=== PATIENT | male | born 1995 | race Caucasian/White ===

== ENCOUNTER 2024-05-01 21:24 | Emergency (ER) | payer BC, SELFPAY ==
[2024-05-01 21:25] VITALS: BP 121/92; PULSE 93; RESP 16; TEMP 35.5; O2SAT 95; BMI 26.6
--- NOTE | 2024-05-01 22:11 | EX.ED.DYSGE1 ---
HPI History of Present Illness Chief Complaint: Nausea/Vomiting Informant: patient and spouse/S.O. Narrative Narrative: 28-year-old male presenting to the emergency room with vomiting. Patient states for the past 3 days he has had vomiting. He notes no diarrhea. He notes sweats but no definitive fever. Decreased urination. States having a unable to tolerate anything p.o. He notes his abdomen and flanks feel achy but no significant pain. No recent travel or bad food exposure or bad water. No recent antibiotics. He states he is on Wegovy and thought initially could be from that but it has persisted. He also takes fluoxetine no change in the dosing. is feeling well. No rashes. [facility] Medical History Anxiety Kidney stone Home Medications ?Medication ?Instructions ?Recorded ?Last Taken ?Type promethazine 25 mg tablet 25 mg PO Q6H PRN PRN Nausea #10 05/02/24 Unknown Rx TABLETS Allergy/AdvReac Type Severity Reaction Status Date / Time No Known Allergies Allergy Verified 05/01/24 21:25 Social History Smoking Status: Never smoker ROS [facility] ED Constitutional Constitutional ED: Reports fever(s), subjective and sweats; Denies chills or weight loss Eyes Eyes: Denies change in vision or diplopia ENT ENT ED: Denies ear pain, rhinorrhea or sore throat Cardiovascular Cardiovascular: Denies chest pain, orthopnea, palpitations or racing heartbeat Respiratory/Chest Respiratory/Chest: Denies cough, dyspnea or orthopnea Gastrointestinal Gastrointestinal: Reports nausea, vomiting and other Details: Abdominal aching ; Denies abdominal pain or diarrhea Genitourinary Genitourinary ED: Denies dysuria, hematuria or urinary frequency Musculoskeletal Musculoskeletal: Reports back pain; Denies arthralgias or myalgias Integumentary Denies abscess or rash Neurologic Neurologic: Denies headache(s) or weakness Psychiatric Psychiatric: Denies anxiety, depression, suicidal ideation or suicidal thoughts Endocrine Endocrinology: Denies polydipsia, polyphagia or polyuria Allergic/Immunologic Allergic/Immunologic ED: Denies mouth swelling, tongue swelling or urticaria EXAM Physical Exam Const Vital Signs: 05/01/24 21:25 05/01/24 23:50 05/02/24 01:39 Temperature 96 F L 98.6 F Temperature Source Temporal Oral Pulse Rate 93 104 H 86 Respiratory Rate 16 16 17 Blood Pressure 121/92 H 130/85 H 108/86 H Blood Pressure Mean 101 100 93 Pulse Ox 95 99 96 Oxygen Delivery Method Room Air Room Air Room Air Positive well nourished and well developed General Appearance ED: well developed HEENT Reports normocephalic, head/scalp atraumatic and moist mucous membranes Eyes PERRL and EOMs intact bilaterally Neck no lymphadenopathy, supple and no JVD Resp normal respiratory effort and clear to auscultation bilaterally Cardio regular rate, regular rhythm and no murmurs GI normal to inspection, nondistended, normoactive bowel sounds and non-tender Palpation: soft Back/Spine no CVA tenderness and normal ROM Extremity normal to inspection General Extremety ED: Negative for edema General Extremity: Negative for edema Neuro oriented x3 and CN's II-XII intact bilaterally Sensorium / Orientation: alert Motor Exam: strength 5/5 throughout Psych mental status grossly normal Mood & Affect: Negative for depressed or tearful Skin no rashes or lesions noted and no wounds MDM MDM MDM Narrative Medical decision making narrative: Differential diagnosis includes but not limited to gastritis bowel obstruction volvulus pancreatitis biliary colic choledocholithiasis colitis dehydration electrolyte abnormalities medication reaction White count is normal at 8.0 hemoglobin 15.7 and platelet count of 265. 85.1 neutrophils 9.3 lymphocytes. BMP shows a potassium of 3.3 gap of 10 CO2 25 BUN of 12 creatinine 0.82. Patient has a total bilirubin of 1.6 with a direct bilirubin of 0.38. Otherwise LFTs are within normal limits. Lipase is normal at 39. Urine concentrated with [address] ketones[address] No obvious infection. CT abdomen pelvis demonstrated small renal calculi but otherwise no acute findings. Patient received IV fluids and Zofran. Patient required redosing with Zofran. He is able to tolerate some ice chips but still had nauseous received a dose of Phenergan. I believe the patient can be discharged home. I will write for nausea medication. I would suspect that his symptoms would subside in the next few days. I am not seeing any evidence of obstruction either of bowel or gastric. I will write for Phenergan. I would encourage him to advance diet as tolerated and orally hydrate in any way including popsicles or small frequent sips of water/electrolyte drink. History & Record Review Discussion w/independent historian: Patient and Significant other Lab Data Attestation: I reviewed the patient's lab results. Labs: Laboratory Results - last 24 hr 05/01/24 05/01/24 22:37 23:42 WBC 8.0 RBC 5.02 Hgb 15.7 Hct 43.9 MCV 87.5 MCH 31.3 MCHC 35.8 RDW Std Deviation 37.2 RDW Coeff of Keith 11.6 Plt Count 265 MPV 11.7 Immature Gran % (Auto) 0.300 Neut % (Auto) 85.1 H Lymph % (Auto) 9.3 L [place] % (Auto) 4.9 Eos % (Auto) 0.0 Baso % (Auto) 0.4 Absolute Neuts (auto) 6.8 Absolute Lymphs (auto) 0.74 L Nucleated RBC % 0 Sodium 142 Potassium 3.3 L Chloride 107 Carbon Dioxide 25.0 Anion Gap 10 BUN 12 Creatinine 0.82 Estim Creat Clear Calc 123.15 Est GFR (MDRD) Af Amer 141 Est GFR (MDRD) Non-Af 117 BUN/Creatinine Ratio 14.6 Glucose 114 H Calcium 9.4 Total Bilirubin 1.60 H Direct Bilirubin 0.38 H AST 19 ALT 50 Alkaline Phosphatase 64 Total Protein 8.2 Albumin 4.1 Globulin 4.1 Lipase 39 Urine Color Magda Urine Clarity Clear Urine pH 6.0 Ur Specific [place] 1.020 Urine Protein 30 H Urine Glucose (UA) Normal Urine Ketones 150 A* Urine Occult Blood Negative Urine Nitrite Negative Urine Bilirubin Negative Urine Urobilinogen 4 H Ur Leukocyte Esterase 25 H Urine RBC 0-5 SEEN Urine WBC 5-10 SEEN Ur Squamous Epith Cells 0-5 SEEN Calcium Oxalate Crystal 1+ Urine Bacteria 0 SEEN Urine Mucus RARE Radiography Diagnostic Testing: Clinical Impression(s) from Imaging Studies Abdomen/Pelvis CT 05/01/24 23:10 IMPRESSION: No acute findings. Bilateral nephrolithiasis without hydronephrosis. Electronically Signed: Cindy Tran MD at 0:10 EDT , Discharge Plan Triage Chief Complaint: Nausea/Vomiting ED Provider: Stevenson Espinal Dx/Rx/DC Orders Clinical Impression: Vomiting, Mild dehydration Instructions: ED Dehydration (Adult), ED Vomiting (Adult) Prescriptions: New promethazine 25 mg tablet 25 mg PO Q6H PRN PRN (Reason: Nausea) Qty: 10 0RF Primary Care Provider: Care Physician,No Primary Referrals: Care Physician,No Primary [Primary Care Provider] - Print Language: Micronesian Disposition Disposition: Home, Self Care
[2024-05-01] MEDS: 0.9% Normal Saline (1000mL) 1,000 ML 999 ML IV (22:39)
[2024-05-01] MEDS: Ondansetron 4 MG/2 ML Vial IV (22:39)
[2024-05-01 22:59] LABS: AST(SGOT) 19 U/L (15-37); Alanine Aminotransfer ALT/SGPT 50 U/L (16-61); Albumin, Serum 4.1 g/dL (3.2-5.0); Alkaline Phosphatase 64 U/L (45-117); Anion Gap 10 (5-15); BUN 12 mg/dL (7-18); BUN/Creat Ratio 14.6 RATIO (10-20); Bilirubin, Direct 0.38 mg/dL (0.00-0.30); Calcium,Total 9.4 mg/dL (8.5-10.1); Chloride 107 mmol/L (98-107); Creatinine, Serum 0.82 mg/dL (0.70-1.30); EST Glomerular Filtration Rate 117 mL/min (>60); Est Glom Filt Rate - Afr Amer 141 mL/min (>60); Estimated Creatinine Clearance 123.15 ml/min; Globulin 4.1 g/dL (2.2-4.2); Glucose 114 mg/dL (74-106); Lipase 39 U/L (13-75); Potassium 3.3 mmol/L (3.5-5.1); Protein, Total 8.2 g/dL (6.4-8.2); Sodium Level 142 mmol/L (136-145)
[2024-05-01 23:00] LABS: Absolute Lymphocyte Count 0.74 X10^3/uL (0.83-4.51); Absolute Neutrophil Count 6.8 X10^3/uL (2.0-7.7); Basophil# 0.03 X10^3/uL; Basophil% 0.4 % (0-1); Hematocrit 43.9 % (40-54); Hemoglobin 15.7 g/dL (13.0-16.5); Lymphocyte # 0.74 X10^3/ul (0.83-4.51); Lymphocyte % 9.3 % (19-41); Mean Corp Hgb Conc 35.8 g/dL (32-36); Mean Corpuscular Hgb 31.3 pg (27.0-32.0); Mean Corpuscular Volume 87.5 fL (80-94); Mean Platelet Vol. 11.7 fl (6.2-12.0); Monocyte# 0.39 X10^3/uL; Monocyte% 4.9 % (0-10); NRBC Flagged by Analyzer 0 % (0-5); Neutrophil # 6.77 X10^3/uL (2.7-7.7); Neutrophil % 85.1 % (47-70); Platelet Count 265 K/mm3 (150-450); RBC Distribution Width CV 11.6 % (11.6-14.6); RBC Distribution Width SD 37.2 fl (35.1-43.9); Red Blood Count 5.02 M/mm3 (4.6-6.2)
--- NOTE | 2024-05-01 23:10 | CT_ITS ---
EXAM: CT Abdomen And Pelvis W/ Contrast Injection HISTORY: abdominal pain and vomiting TECHNIQUE: Routine protocol CT abdomen pelvis. IV Contrast: IV 100mL [id number] . Oral Contrast: without. Sagittal and coronal images were reconstructed. RADIATION DOSAGE (If Supplied By Facility): CTDIvol = ( 9.45 ) mGy, DLP = ( 718.72 ) mGycm Individualized dose optimization techniques were used for this CT. COMPARISON: None. LIMITATIONS: None. FINDINGS: LOWER CHEST: Lung bases are clear. Tiny nodule right lower lobe likely postinflammatory. LIVER: Unremarkable. GALLBLADDER/BILE DUCTS: Unremarkable. PANCREAS: Unremarkable. SPLEEN: Unremarkable. ADRENAL GLANDS: Unremarkable. KIDNEYS / URETERS: A few small calculi in both kidneys. No hydronephrosis. BOWEL / MESENTERY: Unremarkable. No bowel obstruction. APPENDIX: Identified and normal. No evidence of acute appendicitis. PERITONEUM: No free air. No free fluid. VESSELS: Abdominal aorta is normal caliber. RETROPERITONEUM: Unremarkable. REPRODUCTIVE ORGANS: Unremarkable. BLADDER: Unremarkable. ABDOMINAL WALL: Unremarkable. BONES: No acute abnormality. 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 OTHER: None. CT/Abdomen/Pelvis W IV Cont ONLY IMPRESSION: No acute findings. Bilateral nephrolithiasis without hydronephrosis. Electronically Signed: Cindy Tran MD at 0:10 EDT ,
[2024-05-01 23:50] VITALS: BP 130/85; PULSE 104; RESP 16; TEMP 37; O2SAT 99
[2024-05-01 23:51] LABS: Bacteria 0 SEEN /hpf (None Seen)
[2024-05-01 23:52] LABS: Color, Urine Amber (Yellow); Glucose, Dipstick Normal (Normal); Leukocyte Esterase-Dipstick 25 /ul (Negative); Nitrite-Dipstick Negative (Negative); Occult Blood-Urine Negative /ul (Negative); Protein-Dipstick 30 mg/dl (Negative); Urine Bilirubin Dipstick Negative (Negative); Urine Clarity Clear (Clear); Urine Urobilinogen 4 mg/dl (Normal)
[2024-05-01] MEDS: 0.9% Normal Saline (1000mL) 1,000 ML 150 ML IV (23:57)
[2024-05-02] MEDS: Ondansetron 4 MG/2 ML Vial IV (00:02)
[2024-05-02 00:59] LABS: Ketone-Dipstick 150 mg/dl (Negative)
[2024-05-02 01:17] LABS: Calcium Oxalate Crystals Ur 1+ /hpf (<or=2+); Mucous, Urine RARE /hpf (<or=2+); Red Blood Cells-Urine 0-5 SEEN /hpf (0-5); Squamous Epithelial Cells - UA 0-5 SEEN /hpf (0-5); White Blood Cells 5-10 SEEN /hpf (0-5)
[2024-05-02 01:39] VITALS: BP 108/86; PULSE 86; RESP 17; O2SAT 96
[2024-05-02] MEDS: proMETHazine 25 MG Tablet PO (02:10)
[2024-05-02] MEDS: DiphenhydrAMINE 25 MG Capsule PO (02:10)
[2024-05-02 02:11] VITALS: BP 129/86; PULSE 98; RESP 18; TEMP 37.2; O2SAT 97
== END 2024-05-02 02:15 | disposition home or self-care (01) ==
PROVIDERS: Emergency Provider Emergency Medicine; Visit Provider Emergency Medicine
DX: R11.2 Nausea with vomiting, unspecified (principal); E86.0 Dehydration
CPT/HCPCS: 74177; 80048; 80076; 81001; 83690; 85025; 96361; 96374; 99283; J7030; Q9967; A4216; J2405